=== PATIENT | female | born 1990 | race Caucasian/White ===

== ENCOUNTER 2018-07-23 10:54 | Observation (INO) | payer OTHER | END 2018-07-23 14:25 | disposition home or self-care (01) | LOC: FLD 10:54 | PROVIDERS: ADMIT Obstetrics & Gynecology; ATTEND Obstetrics & Gynecology | DX: O9A.213 Injury, poisoning and certain other consequences of external causes complicating pregnancy, third trimester (principal); W00.0XXA Fall on same level due to ice and snow, initial encounter; Z3A.29 29 weeks gestation of pregnancy | CPT/HCPCS: 59025; G0378 ==

== ENCOUNTER 2018-09-20 11:51 | Inpatient (IN) | payer OTHER ==
[2018-09-20] MEDS ORDERED: LIDOCAINE 1% 300 MG/30 ML SDV SC PRN (12:27)
[2018-09-20] MEDS ORDERED: OXYTOCIN/RINGERS LACTATE 1,000 ML IV PRN (12:27)
[2018-09-20] MEDS ORDERED: LR 1,000 ML IV PRN (12:27)
[2018-09-20] MEDS ORDERED: EPSOM SALT 454 GM TP PRN (12:27)
[2018-09-20] MEDS ORDERED: IBUPROFEN 600 MG TAB PO PRN (12:27)
[2018-09-20] MEDS ORDERED: MISOPROSTOL 200 MCG TAB PR PRN (12:27)
[2018-09-20] MEDS ORDERED: OLIVE OIL 118 ML BTL MISC PRN (12:27)
[2018-09-20 12:47] LABS: PLATELET COUNT 220 10^3/uL (150-400)
[2018-09-20] MEDS ORDERED: AMMONIA AROMATIC 1 EACH AMP IH ONE (14:08)
[2018-09-20] MEDS ORDERED: OLIVE OIL 118 ML BTL MISC ONE (14:08)
[2018-09-20] MEDS ORDERED: LIDOCAINE 1% 300 MG/30 ML SDV ONE (14:08)
[2018-09-20] MEDS ORDERED: TERBUTALINE SULFATE 1 MG/ML VIAL ONE (14:08)
[2018-09-20] MEDS ORDERED: MISOPROSTOL 200 MCG TAB ONE (14:09)
[2018-09-20] MEDS ORDERED: OXYTOCIN 10 UNIT/ML VIAL ONE (14:09)
[2018-09-20] MEDS ORDERED: MISOPROSTOL 25 MCG CAP PO ONE (15:15)
--- NOTE | 2018-09-20 17:43 | GHP ---
[f rep st] PREOP HISTORY AND PHYSICAL DATE OF ADMISSION: 09/20/2018 HISTORY UPON ADMISSION: The patient is a 28-year-old G1, P0, at 37 weeks and 4 days, with an estimat ed due date of 10/07/2018 established by a sure last menstrual period with an 8-week ultrasound consi stent with dates. The patient presents to labor and delivery after an evaluation at the office with ultrasound revealing asymmetric IUGR. The patient has had a progressive drop in estimated weig ht through the . The fetus was estimated at the 18th percentile 3 weeks ago, and this was a followup for growth. The estimated weight now is the 4th percentile, confirming IUGR. The Do pplers and fluid are normal on ultrasound today; however, the AC is less than the 2nd percentile. r university specialist, the recommendation after 37 weeks was to proceed with induction of labor. T he patient and her understand the recommendations and come to labor and delivery to begin the cervical ripening for induction. The patient reports good movement. She occasionally has men strual-type cramping, but no definitive contractions. Bag of water is intact. The patient denies an y bleeding. Long discussion with the patient and her regarding increased potential risk of c esarean section due to intolerance of labor. Initial cervical exam shows the cervix is only ef faced approximately 50% with a soft consistency, but is not dilated. We discussed the processes for trying to ripen the cervix gently in preparation for Pitocin to labor. The after discussing differen t options, the patient wants to proceed with low-dose Cytotec at this point, with possibly a Henriquez bu lb through the night. LABS: Include maternal blood type O positive with negative antibody screen. RPR is nonreac tive. Hepatitis B surface antigen is negative. HIV is negative. Rubella is immune. Gonorrhea and chlamydia are negative. Varicella is immune. Urine drug screen is negative. Urinalysis is negative . 1-hour Glucola was normal. MSAFP was negative. Verifi genetic testing was negative. 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 The patient's was karri cked and he is negative for the same gene. The patient was reassured. The patient had mild anemia i n mid at 32 and was placed on iron, and a followup hematocrit was 37%. GBS culture negativ e. PAST MEDICAL HISTORY: History of migraines with aura years ago on control pills, very infreque nt at this point. History of IBS and symptomatic mainly with gluten, dairy and anxiety. History of attention deficit hyperactivity disorder and the patient used Adderall during college, but has not us ed meds since that time. The patient with a history of obsessive-compulsive disorder and anxiety, bu t never medicated. History of increased cholesterol since her teens. PAST SURGICAL HISTORY: Odontectomy at the age of 15. ALLERGIES: The patient has no known drug allergies. CURRENT MEDICATIONS: Only vitamins and iron. SOCIAL HISTORY: Negative x3 with no history of tobacco, alcohol, or drug use. The patient is marrie d, lives with her , and this was a planned . FAMILY HISTORY: Noncontributory. PHYSICAL EXAMINATION: GENERAL: Upon admission, the patient is a well-developed, well-nourished whit e female, in no physical distress. The patient does appear mildly anxious. VITAL SIGNS: Show the p atient is afebrile with normal vitals. See nursing documentation for full details. LUNGS: Clear to auscultation bilaterally. CARDIOVASCULAR: Regular rate and rhythm. ABDOMEN: heart tones re veal a category 1 tracing with baseline in the 130s with good variability and accelerations. No dece lerations noted. Contractions now evident approximately every 10-12 minutes, very mild signs by toco monitoring, but the patient does not perceive any discomfort with these. VAGINAL: Exam performed a nd the cervix is closed, 50% effaced, posterior, with soft consistency. EXTREMITIES: Nontender with no edema. ASSESSMENT: Intrauterine at 37 weeks and 4 days with asymmetric intrauterine growth retard ation, with estimated weight at the 4th percentile, approximately 5 pounds 6 ounces, with asymm etric nature and the abdominal circumference is less than the 2nd percentile. Doppler is normal and the amniotic fluid is normal at 12.5 cm. The patient has a nonfavorable cervix at this time and we h ave discussed cervical ripening, and the patient wants to proceed with low-dose Cytotec at this point . We will possibly place a Henriquez later in the evening. Maternal blood type O positive, rubella immu ne, group B strep negative. PLAN: Patient received her first 25 mcg Cytotec at 3:15 p.m. We will keep on continuous monitoring for at least 4-6 hours after each Cytotec dose. /[id number]/MODL
--- NOTE | 2018-09-20 20:44 | OBPROG ---
Labor Progress Note Assessment/Plan: Assessment: IUP at 37w4d asymmetric IUGR induction with non-favorable cx ripening with cytotec - pt declines corea insert cat I tracing GBS - back pain - will get into tub Plan: cont cytotec q 4 hrs, continuous monitoring 09/20/18 20:39 Subjective/Intrapartum Course: 09/20/18 20:45 Pt is happy the baby's FHTs are very good - cautioned pt that at this point ctxns are very mild. has been feeling mild tightening with ctxns - back is achey - wants to try tub. does not want to try to place corea. will cont with cytotec q 4 hrs unless uterine activity too close Objective: 09/20/18 12:15 Patient ABO/Rh O POSITIVE 09/20/18 12:15 - SVE Membranes: Intact - Contraction Pattern Assessment Current Contraction Pattern: Irregular (q 4 -12 min) - FHR Assessment Taylor FHR (bpm): 130 FHR Pattern Variability: Moderate FHR Category: 1 (accels, no decels) Oxytocin Orders Assessment - Pre-Induction/Augmentation Assessment Gestational Age: 37 week(s) and 4 day(s) ICD10 Worksheet Patient Problems: Problems Problem Status Onset IUGR (intrauterine growth restriction) affecting care of mother Acute
[2018-09-20] MEDS: MISOPROSTOL 25 MCG CAP PO PRN (20:59)
[2018-09-21] MEDS: MISOPROSTOL 25 MCG CAP PO PRN ×2 (01:00→05:05)
--- NOTE | 2018-09-21 04:18 | OBPROG ---
Labor Progress Note Assessment/Plan: Assessment: IUP at 37w4d - pt currently sleeping asymmetric IUGR induction with non-favorable cx ripening with cytotec - pt declines corea insert cat I tracing GBS - Plan: cont cytotec q 4 hrs, continuous monitoring 09/20/18 20:39 09/21/18 04:14 Subjective/Intrapartum Course: 09/20/18 20:45 Pt is happy the baby's FHTs are very good - cautioned pt that at this point ctxns are very mild. has been feeling mild tightening with ctxns - back is achey - wants to try tub. does not want to try to place corea. will cont with cytotec q 4 hrs unless uterine activity too close 09/21/18 04:14 Pt got comfort from heating pad and enjoyed tub - has been able to sleep since about 23:00. wasn't feeling ctxns when up to urinate approx 12:30 and rec'd third cytotec at 1:00. Sleeping now Objective: 09/20/18 12:15 Patient ABO/Rh O POSITIVE 09/20/18 12:15 - SVE Membranes: Intact - Contraction Pattern Assessment Current Contraction Pattern: Irregular (q 4 -12 min) - FHR Assessment Taylor FHR (bpm): 130 FHR Pattern Variability: Moderate FHR Category: 1 (only once all night had decel with ctxn but quick recovery) Oxytocin Orders Assessment - Pre-Induction/Augmentation Assessment Gestational Age: 37 week(s) and 4 day(s) ICD10 Worksheet Patient Problems: Problems Problem Status Onset IUGR (intrauterine growth restriction) affecting care of mother Acute
[2018-09-21] MEDS ORDERED: LR 500 ML IV PRN (09:43)
--- NOTE | 2018-09-21 09:43 | OBPROG ---
Labor Progress Note Assessment/Plan: Assessment: 28 y/o @ 37 5/7 weeks IOL secondary asymmetric IUGR Plan: Corea placed today for cervical ripening, she did get some benefit from the cytotec overnight. We will combine corea with low dose pitocin today and encourage ambulation and upright positioning to encourage labor now. Continue continuous FM and clear liquid diet now. Pain management for labor prn. status is reassuring. 09/21/18 09:41 Subjective/Intrapartum Course: 09/20/18 20:45 Pt is happy the baby's FHTs are very good - cautioned pt that at this point ctxns are very mild. has been feeling mild tightening with ctxns - back is achey - wants to try tub. does not want to try to place corea. will cont with cytotec q 4 hrs unless uterine activity too close 09/21/18 04:14 Pt got comfort from heating pad and enjoyed tub - has been able to sleep since about 23:00. wasn't feeling ctxns when up to urinate approx 12:30 and rec'd third cytotec at 1:00. Sleeping now 09/21/18 09:38 Pt is doing better this am. She rested overnight and was not too uncomfortable with contractions. She has gotten up, had breakfast and a shower. She is ready to continue IOL today. She has felt good FM, min cramping now. Last dose of cytotec was 5 am. Objective: 09/20/18 12:15 Patient ABO/Rh O POSITIVE 09/20/18 12:15 - SVE Dilation (cm): 1 Effacement (%): 50 Station: -2 (soft and anterior) Membranes: Intact - Contraction Pattern Assessment Current Contraction Pattern: Irregular (q 4 -12 min) - FHR Assessment Taylor FHR (bpm): 140 FHR Pattern Variability: Moderate FHR Category: 1 - Procedures Non-surgical Procedures: Other (Specify) (corea catheter placed under sterile technique, 40 cc ) Oxytocin Orders Assessment - Pre-Induction/Augmentation Assessment Gestational Age: 37 week(s) and 4 day(s) ICD10 Worksheet Patient Problems: Problems Problem Status Onset IUGR (intrauterine growth restriction) affecting care of mother Acute
[2018-09-21] MEDS ORDERED: OXYTOCIN/RINGERS LACTATE 500 ML IV SCH (10:00)
[2018-09-21] MEDS ORDERED: PHENYLEPHRINE HCL 100 MCG/ML SYR ONE (14:20)
--- NOTE | 2018-09-21 14:22 | PREANESOB ---
Obstetric Pre-Anesthesia Info - General Info Proposed Procedure: labor epidural : 1 Para: 0 DARIA: 10/07/18 Gestational Age: 37 week(s) and 4 day(s) - Info Status: Full Term - Labor Status Cervical Dilation per last OB SVE: 1 Station per last OB SVE: -2 (soft and anterior) Pitocin: In Use Indications for Labor Analgesia: Augmentation of Labor, Pain Control Labor Epidural: Proposed Anesthesia Allergies/Adverse Reactions: Allergy/AdvReac Type Severity Reaction Status Date / Time No Known Allergies Allergy Unverified 07/23/18 11:56 Home Medications: Medication Instructions Recorded Ferrous Sulfate [Iron] 325 mg PO DAILY 07/23/18 Vit27&Calcium/Iron/FA 1 tab PO DAILY 07/23/18 [] [place]-3/Dha/Epa/Fish Oil [Fish Oil 1 cap PO DAILY 09/20/18 1,000 mg Softgel] Prilosec 20 mg PO DAILY 09/20/18 Visit Medications: Generic Name Dose Route Start Last Admin Trade Name Nito PRN Reason Stop Dose Admin Oxytocin/Lactated Ringer's 1,000 mls @ 125 mls/hr 09/20/18 12:27 Pitocin 20 Units/Lr (Premix) IV PRN PRN Post bleeding Lactated Ringer's 500 mls @ 500 mls/hr 09/21/18 09:43 Lr IV 09/22/18 09:43 PRN PRN Maternal Hypotension Oxytocin/Lactated Ringer's 500 mls @ 0 mls/hr 09/21/18 10:00 09/21/18 10:11 Pitocin 30 Units/Lr (Premix) IV 03/20/19 09:59 500 mls CONT FREDDIE Administration Protocol Per Protocol Ibuprofen 600 mg 09/20/18 12:27 Motrin PO ONCE PRN post , pain Lidocaine HCl 300 mg 09/20/18 12:27 Lidocaine Hcl 1% SC 03/19/19 12:26 ONCE PRN episiotomy Magnesium Sulfate 454 gm 09/20/18 12:27 Epsom Salt TP 03/19/19 12:26 Q1H PRN perineal discomfort Misoprostol 800 - 1,000 mcg 09/20/18 12:27 Cytotec CA ONCE PRN Vaginal Atony/Bleeding Misoprostol 25 mcg 09/20/18 20:26 09/21/18 05:05 Cytotec PO 03/19/19 20:25 25 mcg Q4H PRN Administration cervical ripening [place] Oil 118 ml 09/20/18 12:27 Sweet Oil MISC 03/19/19 12:26 ONCE PRN perineal massage Discontinued Medications Generic Name Dose Route Start Last Admin Trade Name Freq PRN Reason Stop Dose Admin Ammonia (Aromatic Spirit) Confirm 09/20/18 14:08 Ammonia Aromatic Administered 09/20/18 14:09 Dose 1 each IH .STK-MED ONE Lactated Ringer's 1,000 mls @ 0 mls/hr 09/20/18 12:27 09/21/18 10:10 Lr IV 09/21/18 12:26 1,000 mls PRN PRN Administration SEE PROTOCOL CONDITIONS Protocol Per Protocol Lidocaine HCl Confirm 09/20/18 14:08 Lidocaine Hcl 1% Administered 09/20/18 14:09 Dose 300 mg .ROUTE .STK-MED ONE Misoprostol Confirm 09/20/18 14:09 Cytotec Administered 09/20/18 14:10 Dose 1,000 mcg .ROUTE .STK-MED ONE Misoprostol 25 mcg 09/20/18 15:15 09/20/18 15:14 Cytotec PO 09/20/18 15:16 25 mcg ONCE ONE Administration [place] Oil Confirm 09/20/18 14:08 Sweet Oil Administered 09/20/18 14:09 Dose 118 ml MISC .STK-MED ONE Oxytocin Confirm 09/20/18 14:09 Pitocin Administered 09/20/18 14:10 Dose 40 unit .ROUTE .STK-MED ONE Phenylephrine HCl Confirm 09/21/18 14:20 Neosynephrine Administered 09/21/18 14:21 Dose 1,000 mcg .ROUTE .STK-MED ONE Terbutaline Sulfate Confirm 09/20/18 14:08 [place]ine Administered 09/20/18 14:09 Dose 1 mg .ROUTE .STK-MED ONE - Vital Signs Height/Weight (Nursing): Height 175.26 cm Weight 84.822 kg - Focused Exam Neck exam: FROM Mallampati Score: Class 2 Mouth exam: normal dental/mouth exam Pulmonary: no respiratory distress, clear to auscultation Cardiovascular: regular rate and rhythym, no murmur, rub, or gallop Labs: 09/20/18 12:15 Patient ABO/Rh O POSITIVE 09/20/18 12:15 - Plan Consent Signed and on Chart: Yes Patient/Guardian Understands and Agrees to Plan: Yes General Comments: IBS, HL, anxiety, IUGR
[2018-09-21] MEDS ORDERED: fentaNYL 200 MCG, BUPIVACAINE 0.5% 20 ML in NS 100 ML EP SCH (14:30)
[2018-09-21] MEDS ORDERED: BUPIVACAINE 0.25% 10 ML SDV ONE (14:41)
[2018-09-21] MEDS ORDERED: ONDANSETRON 4 MG/2 ML VIAL IVP PRN (14:55)
[2018-09-21] MEDS ORDERED: PHENYLEPHRINE HCL 100 MCG/ML SYR IVP PRN (14:55)
[2018-09-21] MEDS ORDERED: NALOXONE HCL 0.4 MG/ML INJ IVP PRN (14:55)
[2018-09-21] MEDS ORDERED: LR 500 ML IV SCH (15:00)
[2018-09-21] MEDS ORDERED: fentaNYL 2MCG/ML/BUP 0.1% RTU 100 ML EP SCH (15:00)
--- NOTE | 2018-09-21 15:33 | OBPROG ---
Labor Progress Note Assessment/Plan: Assessment: 28 y/o @ 37 5/7 weeks IOL secondary asymmetric IUGR Plan: Good change now after corea and pitocin. She is comfortable. Arom for clear fluid and IUPC placed to document contraction adequacy. status is reassuring. Dose Pitocin until adequate. 09/21/18 09:41 09/21/18 15:31 Subjective/Intrapartum Course: 09/20/18 20:45 Pt is happy the baby's FHTs are very good - cautioned pt that at this point ctxns are very mild. has been feeling mild tightening with ctxns - back is achey - wants to try tub. does not want to try to place corea. will cont with cytotec q 4 hrs unless uterine activity too close 09/21/18 04:14 Pt got comfort from heating pad and enjoyed tub - has been able to sleep since about 23:00. wasn't feeling ctxns when up to urinate approx 12:30 and rec'd third cytotec at 1:00. Sleeping now 09/21/18 09:38 Pt is doing better this am. She rested overnight and was not too uncomfortable with contractions. She has gotten up, had breakfast and a shower. She is ready to continue IOL today. She has felt good FM, min cramping now. Last dose of cytotec was 5 am. 09/21/18 15:29 Pt is comfortable with her epidural. Objective: 09/20/18 12:15 Patient ABO/Rh O POSITIVE 09/20/18 12:15 - SVE Dilation (cm): 5 Effacement (%): 75 Station: -2 Membranes: AROM, Intact Amniotic Fluid Color: Clear - Contraction Pattern Assessment Current Contraction Pattern: Regular (Q 3-4), Irregular (q 4 -12 min) - FHR Assessment Taylor FHR (bpm): 140 FHR Pattern Variability: Moderate FHR Category: 1 - Procedures Non-surgical Procedures: Amniotomy, IUPC, Other (Specify) (corea catheter placed under sterile technique, 40 cc ) Oxytocin Orders Assessment - Pre-Induction/Augmentation Assessment Gestational Age: 37 week(s) and 4 day(s) ICD10 Worksheet Patient Problems: Problems Problem Status Onset IUGR (intrauterine growth restriction) affecting care of mother Acute
--- NOTE | 2018-09-21 18:38 | OBDEL ---
Info Type: Vaginal Presentation at Delivery: Vertex L&D Analgesia/Anesthesia Type: Epidural GBS+: No Intrapartum Medications: Generic Name Dose Route Start Last Admin Trade Name Freq PRN Reason Stop Dose Admin Oxytocin/Lactated Ringer's 500 mls @ 0 mls/hr 09/21/18 10:00 09/21/18 10:11 Pitocin 30 Units/Lr (Premix) IV 03/20/19 09:59 500 mls CONT FREDDIE Administration Protocol Per Protocol Misoprostol 25 mcg 09/20/18 20:26 09/21/18 05:05 Cytotec PO 03/19/19 20:25 25 mcg Q4H PRN Administration cervical ripening Discontinued Medications Generic Name Dose Route Start Last Admin Trade Name Freq PRN Reason Stop Dose Admin Lactated Ringer's 1,000 mls @ 0 mls/hr 09/20/18 12:27 09/21/18 10:10 Lr IV 09/21/18 12:26 1,000 mls PRN PRN Administration SEE PROTOCOL CONDITIONS Protocol Per Protocol Misoprostol 25 mcg 09/20/18 15:15 09/20/18 15:14 Cytotec PO 09/20/18 15:16 25 mcg ONCE ONE Administration - Hospital Course Intrapartum: 09/20/18 20:45 Pt is happy the baby's FHTs are very good - cautioned pt that at this point ctxns are very mild. has been feeling mild tightening with ctxns - back is achey - wants to try tub. does not want to try to place corea. will cont with cytotec q 4 hrs unless uterine activity too close 09/21/18 04:14 Pt got comfort from heating pad and enjoyed tub - has been able to sleep since about 23:00. wasn't feeling ctxns when up to urinate approx 12:30 and rec'd third cytotec at 1:00. Sleeping now 09/21/18 09:38 Pt is doing better this am. She rested overnight and was not too uncomfortable with contractions. She has gotten up, had breakfast and a shower. She is ready to continue IOL today. She has felt good FM, min cramping now. Last dose of cytotec was 5 am. 09/21/18 15:29 Pt is comfortable with her epidural. Indications for Delivery: Growth Restriction w/Abnormal Doppler studies (normal doppler studies) Vaginal Delivery - Delivery Provider Delivery Physician/CNM: Noreen Nettles - Labor and Delivery Onset of Contractions Date: 09/21/18 Onset of Contractions Time: 11:45 Onset of Contractions Type: Induced Rupture of Membranes Date: 09/21/18 Rupture of Membranes Time: 15:27 Rupture of Membranes Type: Artificial Amniotic Fluid Color: Clear Dilation Complete Date: 09/21/18 Dilation Complete Time: 17:24 Placenta Delivery Date: 09/21/18 Placenta Delivery Time: 18:11 Total Hours of Labor: 6 Non-surgical Procedures: Amniotomy, IUPC, Other (Specify) (corea catheter placed under sterile technique, 40 cc ) Laceration: 2nd Degree, Other (Specify) (right labial) Repair: 2-0, 3-0, Vicryl Vaginal Sponge Count Correct: Yes Vaginal Needle Count Correct: Yes Vaginal Sweep Performed: Yes EBL: 250 Delivery Events: None - Medications Labor Augmentation/Induction Methods Used: Pitocin, Misoprostol, Corea Bulb Labor Augmentation/Induction Indication: IUGR [place] Data DARIA: 10/07/18 Gestational Age: 37 week(s) and 5 day(s) Taylor Delivery Date: 09/21/18 Delivery Time: 18:02 Sex of : Male Score (1 Min): 8 Score (5 Min): 9 ICD10 Worksheet Patient Problems: Problems Problem Status Onset IUGR (intrauterine growth restriction) affecting care of mother Acute (spontaneous vaginal delivery) Acute - ICD10 Problem Qualifiers (1) (spontaneous vaginal delivery)
[2018-09-21] MEDS ORDERED: SIMETHICONE 80 MG TAB CHEW PO PRN (18:40)
[2018-09-21] MEDS ORDERED: oxyCODONE IR 5 MG TAB PO PRN (18:40)
[2018-09-21] MEDS ORDERED: HYDROCORTISONE 0.5% CREAM TP PRN (18:40)
[2018-09-22] MEDS: IBUPROFEN 600 MG TAB PO PRN ×4 (03:46→23:05)
[2018-09-22] MEDS: ACETAMINOPHEN 325 MG TAB PO PRN ×3 (08:14→19:59)
[2018-09-22] MEDS: DOCUSATE SODIUM 100 MG CAP PO PRN (08:14)
--- NOTE | 2018-09-22 09:58 | POSTANESTH ---
Post Anesthetic Evaluation Cardiovascular Status: Normal, Stable Respiratory Status: Normal, Stable Level of Consciousness/Mental Status: Can Participate in Eval Pain Control: Adequate, Prn Tx Ordered Nausea/Vomiting Control: Adequate, Prn Tx Ordered Complications Possibly Related to Anesthesia: None Noted
--- NOTE | 2018-09-22 14:17 | OBPP ---
Progress Note Assessment/Plan: Assessment: s/p after induction for IUGR at 37+ wks Plan: routine care 09/20/18 20:39 09/21/18 04:14 09/22/18 14:14 Subjective/ Course: 09/22/18 14:15 Pt doing well. so happy with how everything's going. Bld is light. urinating fine. bottom sore. baby is latching great and pt also pumping and getting colostrum. Objective: 09/20/18 12:15 Patient ABO/Rh O POSITIVE 09/20/18 12:15 Temp Pulse Resp BP Pulse Ox 36.2 C 79 16 106/74 98 09/22/18 08:00 09/22/18 08:00 09/22/18 08:00 09/22/18 08:00 09/22/18 08:00 Uterine Position/Fundal Height: Umbilicus -1 Uterine Tone: Firm Physical Exam - Physical Exam Abdomen: non-tender, soft, other (FF at umb -1) Extremities: non-tender, pedal edema (minimal) Skin: normal color, warm/dry Neuro/Psych: alert, normal mood/affect
[2018-09-23] MEDS: IBUPROFEN 600 MG TAB PO PRN ×2 (04:58→11:56)
[2018-09-23 08:23] VITALS: BP 111/73
[2018-09-23] MEDS: ACETAMINOPHEN 325 MG TAB PO PRN ×2 (08:30→14:19)
[2018-09-23] MEDS: DOCUSATE SODIUM 100 MG CAP PO PRN (08:30)
--- NOTE | 2018-09-23 08:51 | OBPP ---
Progress Note Assessment/Plan: Assessment: 28 yo G1now P1, PPD#2 s/p , doing well. Plan: DC home. Std vag deliv pp instructions reviewed, including ssx pp depression. See dc instructions. Candace Allen MD, FACOG 09/23/18 10:26 Subjective/ Course: 09/22/18 14:15 Pt doing well. so happy with how everything's going. Bld is light. urinating fine. bottom sore. baby is latching great and pt also pumping and getting colostrum. 09/23/18 10:27 Doing great. and pumping - going well. Mod lochia. Concerned about swelling of her perineum. Ambulating and voiding without difficulty. Objective: 09/20/18 12:15 Patient ABO/Rh O POSITIVE 09/20/18 12:15 Temp Pulse Resp BP Pulse Ox 36.4 C 70 14 111/73 97 09/23/18 08:00 09/23/18 08:00 09/23/18 08:00 09/23/18 08:00 09/23/18 08:00 gen- pleasant, NAD CV - RRR chest - CTAB abd - soft, NT, + BS, fundus firm at u-2 perineum - mildly purplish ecchymosis, with one hemorrhoid evident, perineum repair intact, R labial repair intact ext - trace edema, no calf tenderness Uterine Position/Fundal Height: Umbilicus -2 Uterine Tone: Firm
--- NOTE | 2018-09-23 10:39 | OBGCSDC ---
General Delivery Information - General Info : 1 Para: 1 Abortions: 0 Type: Vaginal L&D Analgesia/Anesthesia Type: Epidural, Local Admission Date: 09/20/18 Labs: Patient ABO/Rh O POSITIVE 09/20/18 12:15 Hct 38.5 % (38.0-47.0) 09/20/18 12:15 - Hospital Course Intrapartum: 09/20/18 20:45 Pt is happy the baby's FHTs are very good - cautioned pt that at this point ctxns are very mild. has been feeling mild tightening with ctxns - back is achey - wants to try tub. does not want to try to place corea. will cont with cytotec q 4 hrs unless uterine activity too close 09/21/18 04:14 Pt got comfort from heating pad and enjoyed tub - has been able to sleep since about 23:00. wasn't feeling ctxns when up to urinate approx 12:30 and rec'd third cytotec at 1:00. Sleeping now 09/21/18 09:38 Pt is doing better this am. She rested overnight and was not too uncomfortable with contractions. She has gotten up, had breakfast and a shower. She is ready to continue IOL today. She has felt good FM, min cramping now. Last dose of cytotec was 5 am. 09/21/18 15:29 Pt is comfortable with her epidural. : 09/22/18 14:15 Pt doing well. so happy with how everything's going. Bld is light. urinating fine. bottom sore. baby is latching great and pt also pumping and getting colostrum. 09/23/18 10:27 Doing great. and pumping - going well. Mod lochia. Concerned about swelling of her perineum. Ambulating and voiding without difficulty. Vaginal - Delivery Provider Delivery Physician/CNM: Noreen Nettles - Diagnosis Labor: Induced Rupture of Membranes Type: Artificial Amniotic Fluid Color: Clear Laceration: 2nd Degree, Other (Specify) (right labial) Repair: 2-0, 3-0, Vicryl Delivery Events: None - Procedures Non-surgical Procedures: Amniotomy, IUPC, Other (Specify) (corea catheter placed under sterile technique, 40 cc ) - Delivery Non-surgical Procedures: Amniotomy, IUPC, Other (Specify) (corea catheter placed under sterile technique, 40 cc ) EBL: 250 [place] Data DARIA: 10/07/18 Gestational Age: 38 week(s) and 0 day(s) Taylor Delivery Date: 09/21/18 Delivery Time: 18:02 Sex of Infant: Male [place] Weight (gm): 2350 g Score (1 Min): 8 Score (5 Min): 9 Discharge Information - Discharge Information Prescriptions: Ibuprofen [Motrin (*)] 600 mg PO Q6HRS PRN #30 tab PRN Reason: Pain, Mild Able To Take Po Condition: Good Instruction/Follow Up: See Instruction Sheet, Two Weeks (mood check with [facility]) , Six Weeks (6 wk pp check at [facility])
== END 2018-09-23 16:30 | disposition home or self-care (01) | DRG 807 ==
LOC: FLD 11:51 → FOB 09-21 22:13
PROVIDERS: ADMIT Obstetrics & Gynecology; ATTEND Obstetrics & Gynecology
DX: O36.5930 Maternal care for other known or suspected poor fetal growth, third trimester, not applicable or unspecified (principal); O70.1 Second degree perineal laceration during delivery; Z3A.38 38 weeks gestation of pregnancy; Z37.0 Single live birth
CPT/HCPCS: J2370; J2590; J3010; J3105

== ENCOUNTER → 2018-10-14 | Outpatient (CLI) | payer OTHER | LOC: FLACT 11:54 ==